=== PATIENT | male | born 1995 | race African-American/Black ===

== ENCOUNTER → 2019-10-07 | Emergency (ER) | payer MEDICAID, OTHER ==
[~2019-10-07] VITALS: Ht 170.2 cm; Wt 72.6 kg
[~2019-10-07] MED LIST: ACETAMINOPHEN/CODEINE#3 (300/30mg) TAB PO ONE; PIPERACILLIN-TAZOB 3.375GM 100 ML IV ONE
[2019-10-07 14:28] VITALS: BP 131/92
== END | disposition home or self-care (01) ==
LOC: ER 13:54
DX: Z48.00 Encounter for change or removal of nonsurgical wound dressing (principal); E11.9 Type 2 diabetes mellitus without complications
CPT/HCPCS: 96365; 96366; 99284; C1887; J2543